=== PATIENT | male | born 1985 | race Caucasian/White ===

== ENCOUNTER 2019-03-04 13:49 | Emergency (ER) | payer BC ==
[~2019-03-04] VITALS: Ht 162.6 cm; Wt 59.1 kg
[2019-03-04] MEDS ORDERED: EFFE75CA2 PO (13:54)
[2019-03-04] MEDS ORDERED: NEOSPORIN OINT 0.9 GM PKT (FLOOR STOCK) As Ordered ONE (14:10)
[2019-03-04] MEDS ORDERED: NEOSPORIN OINT 0.9 GM PKT (FLOOR STOCK) TOP ONE (14:15)
[2019-03-04] MEDS ORDERED: NORCO, ANEXSIA 5/325MG TABLET (HYDROcodone/ACETAMINOPHEN) PO ONE (14:30)
[2019-03-04] MEDS ORDERED: ACETAMINOPHEN TAB 650MG DOSE (2X325MG) PO ONE (14:30)
--- NOTE | 2019-03-04 14:45 | REP ---
Left forearm two views : There is no fracture or dislocation. Mineralization and joint spaces are normal. There are no calcifications or foreign bodies. Impression: Negative left forearm . Electronically Signed by Brady Sauceda MD 03/04/2019 02:35 P
[2019-03-04 15:12] VITALS: BP 130/72
[2019-03-04] MEDS ORDERED: AUGM875T28 PO (15:17)
== END 2019-03-04 15:42 | disposition home or self-care (01) ==
LOC: M ED 13:49
DX: S50.872A Other superficial bite of left forearm, initial encounter (principal); W54.0XXA Bitten by dog, initial encounter; Y92.89 Other specified places as the place of occurrence of the external cause; Z87.891 Personal history of nicotine dependence; Z79.899 Other long term (current) drug therapy

== ENCOUNTER → 2019-09-19 | Outpatient (REF) | payer BC ==
[~2019-09-19] MED LIST: AUGM875T28 PO; EFFE75CA2 PO
[2019-09-19 19:01] LABS: FOLATE 6.3 NG/ML
== END ==
LOC: M LAB REF 17:31
PROVIDERS: ATTEND Internal Medicine Nephrology
DX: D64.9 Anemia, unspecified (principal)

== ENCOUNTER → 2019-09-27 | Outpatient (CLI) | payer BC ==
--- NOTE | 2019-09-28 05:38 | REP ---
Clinical: Renal cyst. Technique: Real time barbosa scale ultrasound examination using curved array transducer. Findings: The bilateral kidneys are normal in reniform shape, echo texture, size. No hydronephrosis, nephrolithiasis, or renal mass lesion appreciated. No perinephric fluid collection. Right kidney measures 10.7 x 5.1 x 5.4 cm and includes 11 mm simple mid pole cyst and 11 mm presumed complex benign upper pole cyst with small mural calcification. Left kidney measures 10.3 x 5.1 x 5.3 cm without cyst. Bladder is unremarkable. Impression: Two 11 mm cysts in the right kidney having relatively simple and benign appearance. Electronically Signed by Teddy Boone MD 09/28/2019 05:29 A
== END ==
LOC: M RAD 10:57
PROVIDERS: ATTEND Internal Medicine Nephrology
DX: N28.1 Cyst of kidney, acquired (principal); M54.5 Low back pain; N18.1 Chronic kidney disease, stage 1

== ENCOUNTER 2021-11-15 12:25 | Outpatient (CLI) | payer OTHER ==
[2021-11-15] MEDS ORDERED: ACETAMINOPHEN TAB 650MG DOSE (2X325MG) PO PRN (12:50)
[2021-11-15] MEDS ORDERED: ERTAPENEM SODIUM 1 GM in NS MINI-BAG PLUS 50 ML IV ONE (13:00)
[2021-11-15] MEDS ORDERED: SODIUM CHLORIDE 0.9% INJ 10 ML SYR IV PRN (13:15)
[2021-11-15] MEDS ORDERED: SODIUM CHLORIDE 0.9% INJ 10 ML SYR IV SCH (18:00)
== END 2021-11-15 13:55 | disposition home or self-care (01) ==
LOC: M INFU 12:25 → M MS5PR 12:29 → M INFU 13:55
PROVIDERS: ATTEND Internal Medicine Infectious Disease
DX: L03.119 Cellulitis of unspecified part of limb (principal); W55.01XA Bitten by cat, initial encounter; Y99.9 Unspecified external cause status
CPT/HCPCS: 96365; J1335; J1642

== ENCOUNTER 2021-11-16 08:38 | Outpatient (CLI) | payer BC, OTHER ==
[~2021-11-16] VITALS: Ht 162.6 cm; Wt 58.0 kg
[~2021-11-16 08:38] MED LIST changes: +ACETAMINOPHEN TAB 650MG DOSE (2X325MG) PO PRN; +ERTAPENEM SODIUM 1 GM in NS MINI-BAG PLUS 50 ML IV ONE
[2021-11-16] MEDS ORDERED: ERTAPENEM SODIUM 1 GM in NS MINI-BAG PLUS 50 ML IV ONE (10:55)
[2021-11-16] MEDS ORDERED: ACETAMINOPHEN TAB 650MG DOSE (2X325MG) PO PRN (10:55)
[2021-11-16] MEDS ORDERED: SODIUM CHLORIDE 0.9% INJ 10 ML SYR IV PRN (12:15)
[2021-11-16 12:31] VITALS: BP 136/93
[2021-11-16] MEDS ORDERED: SODIUM CHLORIDE 0.9% INJ 10 ML SYR IV SCH (18:00)
== END 2021-11-16 12:40 | disposition home or self-care (01) ==
LOC: M INFU 08:38 → M OPCLI5PR 08:38 → M INFU 08:41 → M MS5PR 08:41 → M INFU 12:40
PROVIDERS: ATTEND Internal Medicine Infectious Disease
DX: L03.119 Cellulitis of unspecified part of limb (principal); W55.01XA Bitten by cat, initial encounter; Y99.9 Unspecified external cause status
CPT/HCPCS: 96365; J1335; J1642

== ENCOUNTER 2021-11-17 16:26 | Outpatient (CLI) | payer OTHER ==
[~2021-11-17] VITALS: Ht 162.6 cm; Wt 58.0 kg
[~2021-11-17 16:26] MED LIST changes: -ACETAMINOPHEN TAB 650MG DOSE (2X325MG) PO PRN; +SODIUM CHLORIDE 0.9% INJ 10 ML SYR IV PRN
[2021-11-17 16:38] VITALS: BP 124/74
[2021-11-17 17:15] VITALS: BP 118/74
[2021-11-17] MEDS ORDERED: SODIUM CHLORIDE 0.9% INJ 10 ML SYR IV SCH (18:00)
== END 2021-11-17 17:15 | disposition home or self-care (01) ==
LOC: M INFU 16:26
PROVIDERS: ATTEND Internal Medicine Infectious Disease
DX: L03.119 Cellulitis of unspecified part of limb (principal); W55.01XA Bitten by cat, initial encounter; Y99.9 Unspecified external cause status
CPT/HCPCS: 96365; J1335; J1642

== ENCOUNTER → 2021-11-25 | Outpatient (REF) | payer OTHER ==
[~2021-11-25] MED LIST changes: -ERTAPENEM SODIUM 1 GM in NS MINI-BAG PLUS 50 ML IV ONE; -SODIUM CHLORIDE 0.9% INJ 10 ML SYR IV PRN
[2021-11-25 16:11] LABS: BASO # 0.1 10^3/uL (0.0-0.2); EOS # 0.4 10^3/uL (0.0-0.5); EOS % 5.1 % (0.0-3.0); HEMATOCRIT 38.8 % (42.0-52.0); HEMOGLOBIN 12.6 g/dl (13.5-17.5); LYMPH # 2.9 10^3/uL (1.5-5.0); LYMPH % 41.9 % (24.0-44.0); MEAN CORPUSCULAR HEMOGLOBIN 30.8 pg (27.0-33.0); MEAN CORPUSCULAR HGB CONC 32.5 g/dl (32.0-36.5); MEAN CORPUSCULAR VOLUME 94.9 fl (80.0-96.0); MONO # 0.5 10^3/uL (0.0-0.8); MONO % 7.7 % (2.0-8.0); NEUTROPHILS # 3.1 10^3/uL (1.5-8.5); NEUTROPHILS % 43.4 % (36.0-66.0); PLATELET COUNT, AUTOMATED 369 10^3/uL (150-450); RED BLOOD COUNT 4.09 10^6/uL (4.30-6.10)
[2021-11-25 16:38] LABS: ALBUMIN 3.8 GM/DL (3.2-5.2); ALT/SGPT 176 U/L (12-78); BILIRUBIN,TOTAL 0.2 MG/DL (0.2-1.0); BLOOD UREA NITROGEN 12 MG/DL (7-18); C REACTIVE PROTEIN QUANTITATIV 0.56 MG/DL (0.00-0.30); CALCIUM LEVEL 9.1 MG/DL (8.5-10.1); CARBON DIOXIDE LEVEL 29 MEQ/L (21-32); CHLORIDE LEVEL 107 MEQ/L (98-107); CREATININE FOR GFR 0.81 MG/DL (0.70-1.30); GLOMERULAR FILTRATION RATE > 60.0 (>60); GLUCOSE, FASTING 84 MG/DL (70-100); POTASSIUM SERUM 4.3 MEQ/L (3.5-5.1); SODIUM LEVEL 141 MEQ/L (136-145); TOTAL PROTEIN 6.9 GM/DL (6.4-8.2)
[2021-11-25 16:45] LABS: ERYTHROCYTE SEDIMENTATION RATE 8 mm/hr (0-15)
== END ==
LOC: M SHH 15:17
PROVIDERS: ATTEND Internal Medicine Infectious Disease
DX: M65.9 Synovitis and tenosynovitis, unspecified (principal); W55.01XA Bitten by cat, initial encounter

== ENCOUNTER → 2021-12-02 | Outpatient (REF) | payer OTHER ==
[2021-12-02 16:54] LABS: BASO % 0.8 % (0.0-1.0); EOS # 0.3 10^3/uL (0.0-0.5); EOS % 5.9 % (0.0-3.0); HEMATOCRIT 39.4 % (42.0-52.0); HEMOGLOBIN 12.7 g/dl (13.5-17.5); LYMPH # 2.3 10^3/uL (1.5-5.0); LYMPH % 47.5 % (24.0-44.0); MEAN CORPUSCULAR HEMOGLOBIN 30.8 pg (27.0-33.0); MEAN CORPUSCULAR HGB CONC 32.2 g/dl (32.0-36.5); MEAN CORPUSCULAR VOLUME 95.4 fl (80.0-96.0); MONO # 0.4 10^3/uL (0.0-0.8); MONO % 8.6 % (2.0-8.0); NEUTROPHILS # 1.8 10^3/uL (1.5-8.5); PLATELET COUNT, AUTOMATED 318 10^3/uL (150-450); RED BLOOD COUNT 4.13 10^6/uL (4.30-6.10); WHITE BLOOD COUNT 4.9 10^3/uL (4.0-10.0)
[2021-12-02 17:18] LABS: ALBUMIN 3.7 GM/DL (3.2-5.2); ALT/SGPT 147 U/L (12-78); BILIRUBIN,TOTAL 0.2 MG/DL (0.2-1.0); BLOOD UREA NITROGEN 13 MG/DL (7-18); CALCIUM LEVEL 8.8 MG/DL (8.5-10.1); CARBON DIOXIDE LEVEL 28 MEQ/L (21-32); CHLORIDE LEVEL 110 MEQ/L (98-107); CREATININE FOR GFR 0.75 MG/DL (0.70-1.30); GLOMERULAR FILTRATION RATE > 60.0 (>60); GLUCOSE, FASTING 81 MG/DL (70-100); POTASSIUM SERUM 4.8 MEQ/L (3.5-5.1); SODIUM LEVEL 142 MEQ/L (136-145); TOTAL PROTEIN 6.6 GM/DL (6.4-8.2)
[2021-12-02 17:43] LABS: ERYTHROCYTE SEDIMENTATION RATE 8 mm/hr (0-15)
== END ==
LOC: M SHH 16:12
PROVIDERS: ATTEND Internal Medicine Infectious Disease
DX: M65.9 Synovitis and tenosynovitis, unspecified (principal); W55.01XA Bitten by cat, initial encounter

== ENCOUNTER → 2025-01-02 | Outpatient (CLI) | payer OTHER | LOC: M WUC 09:03 | PROVIDERS: ATTEND Physician Assistant | DX: S23.41XA Sprain of ribs, initial encounter (principal) ==